=== PATIENT | male | born 1940 | race Caucasian/White ===

== ENCOUNTER → 2017-02-01 | Outpatient (CLI) | payer MEDICARE ==
[~2017-02-01] MED LIST: ASPIRIN325 MG PO; BACTROBAN OINT22 GM EXT; DONEPEZIL HCL10 MG PO; ELIQUIS5 MG PO; HYDRALAZINE HCL50 MG PO; LANTUS100 UNIT/1 SQ; LATANOPROST2.5 ML OP; METOPROLOL TART25 MG PO; NEURONTIN 400400 MG PO; NITROSTAT0.4 MG SL; NYSTOP60 GM TP; PROAIR HFA8.5 GM INH; SPIRONOLACTONE25 MG PO
== END ==
LOC: KOH-I 01-25 09:00 → LAB 08:39
DX: R10.32 Left lower quadrant pain (principal); K57.30 Diverticulosis of large intestine without perforation or abscess without bleeding; K56.69 Other intestinal obstruction
CPT/HCPCS: 36415; 82565; 84520

== ENCOUNTER → 2017-02-08 | Outpatient (CLI) | payer MEDICARE | LOC: KOH-I 11:00 | DX: K57.30 Diverticulosis of large intestine without perforation or abscess without bleeding (principal); K56.69 Other intestinal obstruction | CPT/HCPCS: 74177; Q9962 ==